=== PATIENT | male | born 1980 | race African-American/Black ===

== ENCOUNTER 2017-01-03 23:13 | Emergency (ER) | payer MEDICAID ==
[~2017-01-03] VITALS: Ht 172.7 cm; Wt 99.5 kg
[~2017-01-03 23:13] MED LIST: ASPI325T4 PO; DIVA500T2 PO; OMEG1CAP6 PO; OXYC-229 PO
[2017-01-03] MEDS ORDERED: methylPREDNISolone SOD SUCC 125 MG/2 ML ONE (23:41)
[2017-01-03] MEDS ORDERED: DIPHENHYDRAMINE 50 MG/ML, 1ML ONE (23:41)
[2017-01-03] MEDS ORDERED: FAMOTIDINE 20 MG/2 ML ONE (23:41)
[2017-01-03] MEDS ORDERED: OMEP10CA4 PO (23:52)
[2017-01-03] MEDS ORDERED: ALBU0.63 NEB (23:52)
[2017-01-04] MEDS ORDERED: methylPREDNISolone SOD SUCC 125 MG/2 ML IVPush ONE
[2017-01-04] MEDS ORDERED: DIPHENHYDRAMINE 50 MG/ML, 1ML IVPush ONE
[2017-01-04] MEDS ORDERED: SODIUM CHLORIDE 0.9% 1,000ML IVBOLUS ONE
[2017-01-04] MEDS ORDERED: FAMOTIDINE 20 MG/2 ML IVPush ONE
[2017-01-04 00:23] LABS: BLOOD UREA NITROGEN 9 mg/dL (7-18)
[2017-01-04 01:27] VITALS: BP 149/91
[2017-01-04] MEDS ORDERED: OMNIPAQUE 350 MG/ML, 100ML BOTTLE ONE (01:31)
== END 2017-01-04 02:17 | disposition home or self-care (01) ==
LOC: ED 23:59
DX: T78.40XA Allergy, unspecified, initial encounter (principal); I10 Essential (primary) hypertension; E03.9 Hypothyroidism, unspecified; K21.9 Gastro-esophageal reflux disease without esophagitis
CPT/HCPCS: 36415; 70360; 70491; 71010; 80048; 82040; 85025; 96361; 96374; 96375; 99285; J1200; J2930; J7030; Q9967; S0028

== ENCOUNTER 2017-09-02 09:24 | Emergency (ER) | payer MEDICAID ==
[~2017-09-02] VITALS: Ht 177.8 cm; Wt 92.0 kg
[~2017-09-02 09:24] MED LIST changes: +ALBU0.63 NEB; +ASPI325T17 PO; -ASPI325T4 PO; +OMEP10CA4 PO; -OXYC-229 PO; +OXYC-307 PO
[2017-09-02 09:33] VITALS: BP 154/98
[2017-09-02] MEDS ORDERED: CEFTRIAXONE 250 MG IM ONE (10:00)
[2017-09-02] MEDS ORDERED: AZITHROMYCIN 500 MG TABLET PO ONE (10:00)
[2017-09-02] MEDS ORDERED: LIDOCAINE 1%, 20ML ONE (10:01)
[2017-09-02] MEDS ORDERED: CEFTRIAXONE 250 MG ONE (10:01)
[2017-09-02] MEDS ORDERED: AZITHROMYCIN 500 MG TABLET ONE (10:01)
== END 2017-09-02 10:41 | disposition home or self-care (01) ==
LOC: ED 10:30
DX: A56.8 Sexually transmitted chlamydial infection of other sites (principal); I10 Essential (primary) hypertension; E03.9 Hypothyroidism, unspecified; K21.9 Gastro-esophageal reflux disease without esophagitis
CPT/HCPCS: 96372; 99283; J0696

== ENCOUNTER 2017-12-08 09:40 | Emergency (ER) | payer MEDICAID ==
[~2017-12-08] VITALS: Ht 177.8 cm; Wt 99.5 kg
[2017-12-08 10:56] VITALS: BP 166/81
== END 2017-12-08 10:58 | disposition home or self-care (01) ==
LOC: ED 10:20
DX: S93.492A Sprain of other ligament of left ankle, initial encounter (principal); S60.221A Contusion of right hand, initial encounter; K21.9 Gastro-esophageal reflux disease without esophagitis; I10 Essential (primary) hypertension; E03.9 Hypothyroidism, unspecified; W01.0XXA Fall on same level from slipping, tripping and stumbling without subsequent striking against object, initial encounter; Y93.89 Activity, other specified; Y92.488 Other paved roadways as the place of occurrence of the external cause; Y99.8 Other external cause status
CPT/HCPCS: 99283

== ENCOUNTER 2018-11-10 08:27 | Emergency (ER) | payer MEDICAID ==
[~2018-11-10] VITALS: Ht 180.3 cm; Wt 97.0 kg
--- NOTE | 2018-11-10 08:46 | NUR ---
PT REPORTS BRB PER RECTUM AND LOWER ABD PAIN THAT STARTED THIS AM. PT IS ALERT ORIENTED, WITH NAD. PT IS CONNECTED TO THE MONITOR. CALL LIGHT GEORGINA DE LA TORRE AT BEDSIDE.
[2018-11-10] MEDS ORDERED: SODIUM CHLORIDE 0.9% 1,000 ML IV ONE (09:03)
--- NOTE | 2018-11-10 09:19 | NUR ---
IV PLACED, FLUIDS RUNNING. PT IS RESTING IN BED, WITH EYES CLOSED, RESPIRATIONS EQUAL AND NON LABORED. NAD. PT IS CONNECTED TO THE MONITOR. CALL LIGHT WITHIN REACH.
[2018-11-10 09:27] LABS: MEAN CORPUSCULAR HEMOGLOBIN 31.2 pg (27.5-34.5); MEAN CORPUSCULAR HGB CONC 33.6 g/dL (33.2-36.2); MEAN CORPUSCULAR VOLUME 92.7 fL (81-97); RED BLOOD COUNT 4.82 x10^6/uL (4.38-5.82); RED CELL DISTRIBUTION WIDTH 15.1 % (9.4-14.8)
[2018-11-10 09:30] LABS: ALBUMIN 3.8 g/dL (3.4-5.0); ANION GAP 7 mmol/L (5-15); CALCIUM 8.9 mg/dL (8.5-10.1); CHLORIDE 107 mmol/L (98-107); CREATININE 0.97 mg/dL (0.7-1.3)
[2018-11-10] MEDS ORDERED: SODIUM CHLORIDE FLUSH 10ML SYR IVF ONE (09:30)
[2018-11-10 09:44] LABS: PLATELET COUNT 294 x10^3/uL (130-400)
[2018-11-10 09:45] LABS: BASOPHILS # (AUTO) 0.02 x10^3/uL (0-0.1); BASOPHILS % (AUTO) 0 % (0-1); EOSINOPHILS # (AUTO) 0.04 x10^3/uL (0-0.4); EOSINOPHILS % (AUTO) 1 % (1-7); LYMPHOCYTES # (AUTO) 0.87 x10^3/uL (1-3.4); LYMPHOCYTES % (AUTO) 22 % (22-44); MD MORPH REVIEW ONLY; MONOCYTES # (AUTO) 0.52 x10^3/uL (0.2-0.8); MONOCYTES % (AUTO) 13 % (2-9); NEUTROPHILS # (AUTO) 2.61 x10^3/uL (1.8-6.8); NEUTROPHILS % (AUTO) 64 % (42-75)
--- NOTE | 2018-11-10 09:57 | NUR ---
PT TAKEN TO CT.
[2018-11-10 10:04] LABS: <PLATELET ESTIMATE> ADEQUATE; ANISOCYTOSIS 1+; LARGE PLATELETS 2+; OVALOCYTES 3+
--- NOTE | 2018-11-10 10:08 | NUR ---
PT IS BACK FROM CT. PT IS RESTING IN BED, LOOKING AT HIS PHONE, RESPIRATIONS EQUAL AND NON LABORED. NAD. PT IS CONNECTED TO THE MONITOR. CALL LIGHT WITHIN REACH.
[2018-11-10 10:12] VITALS: BP 133/74
[2018-11-10] MEDS ORDERED: OMNIPAQUE 350 MG/ML, 100ML BOTTLE ONE (10:16)
--- NOTE | 2018-11-10 11:07 | NUR ---
Patient given discharge instructions and they have confirmed that they understand the instructions. Patient ambulatory with steady gait.
== END 2018-11-10 11:09 | disposition home or self-care (01) ==
LOC: ED 10:20
DX: K52.9 Noninfective gastroenteritis and colitis, unspecified (principal); K21.9 Gastro-esophageal reflux disease without esophagitis; I10 Essential (primary) hypertension
CPT/HCPCS: 36415; 74177; 80048; 82040; 85025; 96360; 96361; 99284; J7030; Q9967

== ENCOUNTER 2019-02-12 07:02 | Emergency (ER) | payer SELFPAY ==
[~2019-02-12] VITALS: Ht 180.3 cm; Wt 93.0 kg
[2019-02-12 07:05] VITALS: BP 143/88
[2019-02-12] MEDS ORDERED: IBUPROFEN 600 MG TABLET ONE (07:23)
--- NOTE | 2019-02-12 07:29 | NUR ---
Atraumatic R shoulder pain 07/26. Pt medicated as per emar, to x-ray via gurney.
[2019-02-12] MEDS ORDERED: IBUPROFEN 200 MG TABLET PO ONE (07:30)
--- NOTE | 2019-02-12 07:52 | NUR ---
Back from x-ray. Results pending.
--- NOTE | 2019-02-12 08:11 | NUR ---
Pain 8/10. Patient given discharge instructions and they have confirmed that they understand the instructions. Patient ambulatory with steady gait.
== END 2019-02-12 08:15 | disposition home or self-care (01) ==
LOC: ED 08:13
DX: M25.511 Pain in right shoulder (principal); K21.9 Gastro-esophageal reflux disease without esophagitis; E03.9 Hypothyroidism, unspecified; I10 Essential (primary) hypertension
CPT/HCPCS: 99283

== ENCOUNTER 2019-02-20 10:52 | Emergency (ER) | payer SELFPAY ==
[~2019-02-20] VITALS: Ht 180.3 cm; Wt 93.3 kg
[2019-02-20 11:16] VITALS: BP 120/65
[2019-02-20] MEDS ORDERED: KETOROLAC 30 MG/1 ML ONE (11:55)
[2019-02-20] MEDS ORDERED: KETOROLAC 30 MG/1 ML IM ONE (12:00)
--- NOTE | 2019-02-20 12:08 | NUR ---
Patient given shoulder sling & discharge instructions and they have confirmed that they understand the instructions. Patient ambulatory with steady gait.
== END 2019-02-20 12:09 ==
LOC: ED 12:03
DX: S43.421A Sprain of right rotator cuff capsule, initial encounter (principal); X58.XXXA Exposure to other specified factors, initial encounter; Y93.89 Activity, other specified; Y92.89 Other specified places as the place of occurrence of the external cause; Y99.8 Other external cause status
CPT/HCPCS: 73030; 96372; 99283; J1885

== ENCOUNTER 2019-11-26 17:41 | Emergency (ER) | payer MEDICAID ==
[~2019-11-26] VITALS: Ht 180.3 cm; Wt 92.1 kg
[~2019-11-26 17:41] MED LIST changes: -OMEP10CA4 PO; +OMEP10CA5 PO
[2019-11-26 17:47] VITALS: BP 141/73
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
--- NOTE | 2019-11-26 18:46 | NUR ---
Patient/Caregiver given discharge instructions and they have confirmed that they understand the instructions. Patient ambulatory with steady gait.
== END 2019-11-26 19:44 | disposition home or self-care (01) ==
LOC: ED 18:42
DX: G89.11 Acute pain due to trauma (principal); M54.2 Cervicalgia; I10 Essential (primary) hypertension; E03.9 Hypothyroidism, unspecified; K21.9 Gastro-esophageal reflux disease without esophagitis; V49.40XA Driver injured in collision with unspecified motor vehicles in traffic accident, initial encounter; Y93.89 Activity, other specified; Y92.488 Other paved roadways as the place of occurrence of the external cause; Y99.8 Other external cause status
CPT/HCPCS: 99282

== ENCOUNTER 2019-11-28 18:16 | Emergency (ER) | payer MEDICAID ==
--- NOTE | 2019-11-28 19:05 | NUR ---
LAWYER CRIMINAL: NO ANSWER WHEN CALLED FOR TRIAGE
--- NOTE | 2019-11-28 19:13 | NUR ---
OIL WELL PUMPER: NO ANSWER WHEN CALLED FOR TRIAGE
--- NOTE | 2019-11-28 19:24 | NUR ---
NO ANSWER FOR TRIAGE X 3. NOT IN LOBBY OR RESTROOM
== END 2019-11-28 19:26 | disposition left against medical advice (07) ==
LOC: ED 19:20
DX: M54.5 Low back pain (principal); Z53.21 Procedure and treatment not carried out due to patient leaving prior to being seen by health care provider

== ENCOUNTER 2019-11-29 13:15 | Emergency (ER) | payer MEDICAID ==
[~2019-11-29] VITALS: Ht 180.3 cm; Wt 90.4 kg
[2019-11-29 13:43] VITALS: BP 116/69
[2019-11-29] MEDS ORDERED: CYCLOBENZAPRINE 10 MG TABLET ONE (13:59)
[2019-11-29] MEDS ORDERED: KETOROLAC 30 MG/1 ML ONE (13:59)
[2019-11-29] MEDS ORDERED: HYDROcodone/APAP 5/325 TABLET ONE (13:59)
[2019-11-29] MEDS ORDERED: ONDANSETRON ODT 4 MG PO ONE (14:00)
[2019-11-29] MEDS ORDERED: CYCLOBENZAPRINE 10 MG TABLET PO ONE (14:00)
[2019-11-29] MEDS ORDERED: ONDANSETRON ODT 4 MG ONE (14:00)
[2019-11-29] MEDS ORDERED: KETOROLAC 30 MG/1 ML IM ONE (14:00)
[2019-11-29] MEDS ORDERED: HYDROcodone/APAP 5/325 TABLET PO ONE (14:00)
--- NOTE | 2019-11-29 14:07 | NUR ---
MEDS ADMIN PER DEC. PT TAKEN TO XRAY.
== END 2019-11-29 15:23 | disposition home or self-care (01) ==
LOC: ED 15:00
DX: S16.1XXA Strain of muscle, fascia and tendon at neck level, initial encounter (principal); S29.012A Strain of muscle and tendon of back wall of thorax, initial encounter; S39.012A Strain of muscle, fascia and tendon of lower back, initial encounter; V89.2XXA Person injured in unspecified motor-vehicle accident, traffic, initial encounter; Y93.89 Activity, other specified; Y92.410 Unspecified street and highway as the place of occurrence of the external cause; Y99.8 Other external cause status
CPT/HCPCS: 72050; 72072; 72110; 96372; 99284; J1885; Q0162

== ENCOUNTER 2020-08-26 09:33 | Emergency (ER) | payer MEDICAID ==
[~2020-08-26] VITALS: Ht 180.3 cm; Wt 94.5 kg
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
[2020-08-26] MEDS ORDERED: ACETAMINOPHEN 325 MG TABLET PO ONE (10:30)
[2020-08-26] MEDS ORDERED: KETOROLAC 30 MG/1 ML IM ONE (10:30)
[2020-08-26] MEDS ORDERED: KETOROLAC 30 MG/1 ML ONE (11:20)
[2020-08-26] MEDS ORDERED: ACETAMINOPHEN 325 MG TABLET ONE (11:20)
[2020-08-26 11:33] VITALS: BP 124/76
--- NOTE | 2020-08-26 11:35 | NUR ---
SPLINT PLACED BY LEONELA DILLARD, SLING GIVEN AND FITTED WITH EDPA OK. PT MEDICATED PER EMAR, TOLERATED WELL. PT GIVEN DC INSTRUCTIONS, AMBULATORY TO DC DESK WITH STEADY GAIT.
== END 2020-08-26 11:35 | disposition home or self-care (01) ==
LOC: ED 11:15
DX: M19.041 Primary osteoarthritis, right hand (principal); K21.9 Gastro-esophageal reflux disease without esophagitis; I10 Essential (primary) hypertension
CPT/HCPCS: 29125; 73130; 96372; 99283; J1885

== ENCOUNTER 2020-09-15 09:25 | Emergency (ER) | payer MEDICAID ==
[~2020-09-15] VITALS: Ht 180.3 cm; Wt 92.8 kg
[2020-09-15 11:14] LABS: BASOPHILS % (AUTO) 1 % (0-1); EOSINOPHILS % (AUTO) 1 % (1-7); LYMPHOCYTES % (AUTO) 20 % (22-44); MEAN CORPUSCULAR HEMOGLOBIN 31.4 pg (27.5-34.5); MEAN CORPUSCULAR HGB CONC 33.3 g/dL (33.2-36.2); MEAN PLATELET VOLUME 10.3 fL (7.4-10.4); MONOCYTES % (AUTO) 17 % (2-9); NEUTROPHILS % (AUTO) 61 % (42-75); PLATELET COUNT 247 x10^3/uL (130-400); RED BLOOD COUNT 4.85 x10^6/uL (4.38-5.82); RED CELL DISTRIBUTION WIDTH 14.2 % (9.4-14.8)
[2020-09-15 11:22] LABS: MD NO
[2020-09-15 11:25] LABS: ALANINE AMINOTRANSFERASE 30 U/L (12-78); ALBUMIN 4.1 g/dL (3.4-5.0); ANION GAP 7 mmol/L (5-15); CALCIUM 9.4 mg/dL (8.5-10.1); CHLORIDE 104 mmol/L (98-107); CREATININE 0.95 mg/dL (0.7-1.3)
[2020-09-15 11:27] LABS: ALKALINE PHOSPHATASE 74 U/L (45-117); BILIRUBIN,TOTAL 3.1 mg/dL (0.2-1.0); TOTAL PROTEIN 8.1 g/dL (6.4-8.2)
--- NOTE | 2020-09-15 14:16 | NUR ---
PT REPORTS HAVING N/V/D FOR PAST 4 DAYS. PT IS TENDER IN ALL 4 ABD QUADRANTS. PT RESTING IN GURNEY, NO NEEDS AT THIS TIME. NAD NOTED, WILL CONTINUE TO MONITOR.
[2020-09-15] MEDS ORDERED: ONDANSETRON ODT 4 MG ONE (14:49)
[2020-09-15] MEDS ORDERED: ONDANSETRON ODT 4 MG PO ONE (15:00)
--- NOTE | 2020-09-15 15:05 | NUR ---
PT PROVIDED URINE SAMPLE, SPECIMEN SENT TO LAB. PT REPORTS HE IS NOT ABLE TO PROVIDE A STOOL SAMPLE AT THIS TIME.
[2020-09-15 15:42] LABS: MICROSCOPIC NOT IND
[2020-09-15 16:28] VITALS: BP 134/80
== END 2020-09-15 16:31 | disposition home or self-care (01) ==
LOC: ED 14:39
DX: K52.9 Noninfective gastroenteritis and colitis, unspecified (principal); R11.2 Nausea with vomiting, unspecified; K21.9 Gastro-esophageal reflux disease without esophagitis; I10 Essential (primary) hypertension; E03.9 Hypothyroidism, unspecified
CPT/HCPCS: 36415; 80053; 81003; 83690; 85025; 99285; Q0162; 99283

== ENCOUNTER 2021-02-06 09:22 | Emergency (ER) | payer MEDICAID ==
[~2021-02-06] VITALS: Ht 180.3 cm; Wt 93.4 kg
[~2021-02-06 09:22] MED LIST changes: -OXYC-307 PO; +OXYC-380 PO
[2021-02-06 09:31] VITALS: BP 138/81
--- NOTE | 2021-02-06 09:35 | NUR ---
Pt ambulatory with steady gait back to room
--- NOTE | 2021-02-06 09:42 | NUR ---
PT AMBULATORY TO ROOM 7 W/ C/O L SHOULDER BLADE PAIN STARTED 3 DAYS AGO. PT STATES PAIN W/ COUGHING, YAWNING. PT DENIES ANY RECENT INJURY/TRAUMA TO AREA. DENIES PUSHING/PULLING ANYTHING HEAVY. DENIES ANY CP/SOB. PT RESTING ON GURNEY. NADN. TRISTAN KIMBROUGH AT BEDSIDE FOR EVAL.
[2021-02-06] MEDS ORDERED: KETOROLAC 30 MG/1 ML ONE (09:49)
[2021-02-06] MEDS ORDERED: KETOROLAC 30 MG/1 ML IM ONE (10:00)
== END 2021-02-06 10:29 | disposition home or self-care (01) ==
LOC: ED 10:15
DX: M54.6 Pain in thoracic spine (principal); K21.9 Gastro-esophageal reflux disease without esophagitis; I10 Essential (primary) hypertension; E03.9 Hypothyroidism, unspecified
CPT/HCPCS: 96372; 99283; J1885

== ENCOUNTER 2021-02-15 06:00 | Emergency (ER) | payer MEDICAID ==
[~2021-02-15] VITALS: Ht 180.3 cm; Wt 94.2 kg
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
--- NOTE | 2021-02-15 06:52 | NUR ---
REPORT AND CARE TO MICHELLE WEISS.
[2021-02-15 07:00] VITALS: BP 145/87
[2021-02-15] MEDS ORDERED: ACETAMINOPHEN 500 MG TABLET PO ONE (07:00)
[2021-02-15] MEDS ORDERED: ACETAMINOPHEN 500 MG TABLET ONE (07:10)
== END 2021-02-15 08:06 | disposition left against medical advice (07) ==
LOC: ED 06:07
DX: S90.01XA Contusion of right ankle, initial encounter (principal); S80.11XA Contusion of right lower leg, initial encounter; I10 Essential (primary) hypertension; E03.9 Hypothyroidism, unspecified; X58.XXXA Exposure to other specified factors, initial encounter; Y93.89 Activity, other specified; Y92.89 Other specified places as the place of occurrence of the external cause; Y99.8 Other external cause status
CPT/HCPCS: 99283